=== PATIENT | female | born 1995 | race African-American/Black ===

== ENCOUNTER 2025-07-02 12:05 | Emergency (ER) | payer MEDICAID ==
[~2025-07-02] VITALS: Ht 165.1 cm; Wt 127.6 kg
[~2025-07-02 12:05] MED LIST: ALBU6.7H14 INH; DIPH25CA83 PO; OMEP40CA21 PO
[2025-07-02 12:17] VITALS: TEMP 97.5
[2025-07-02 13:16] LABS: MEAN PLATELET VOLUME 8.9 FL (7.4-10.4); RED CELL DISTRIBUTION WIDTH 18.2 % (11.5-14.5)
[2025-07-02 13:25] LABS: CREATININE 0.88 MG/DL (0.40-0.90); TOTAL CARBON DIOXIDE 27.5 MMOL/L (24-32); eCRCL 84 ML/MIN; eGFR > 90 ML/MIN
[2025-07-02 14:54] LABS: URINE HCG NEGATIVE (NEG)
[2025-07-02 14:57] LABS: LEUKOCYTE ESTERASE ,URINE SMALL (Neg); NITRITES, URINE NEGATIVE (Neg); OCCULT BLOOD,URINE MODERATE (Neg)
[2025-07-02 14:58] LABS: UA COLLECTION TYPE CLN CATCH MIDSTREAM
[2025-07-02 15:06] LABS: MUCUS STRANDS MANY /LPF (Neg); SQUAMOUS EPITHELIAL CELL,UR MODERATE /LPF (FEW)
--- NOTE | 2025-07-02 16:25 | Physician Documentation ---
History of Present Illness Chief Complaint: Abdominal Pain w/vomiting Stated Complaint: MULTIPLE MED COMPLAINTS Time Seen by MD: 14:36 Primary Medical Doctor: NONE Source: patient Mode of Arrival: POV Exam Limitations: no limitations HPI Patient with no significant past medical history presents with a one day history of abdominal pain, nausea, vomiting, diarrhea. Denies fever. Does have chills. Complains of feeling weak and shaky. Complains of a sore throat and cough for one day. Denies sick contacts. Was asked, but otherwise denies review of systems. Medication Reconciliation Allergies: Coded Allergies: No Known Allergies (Unverified , 07/02/25) Scheduled Albuterol Sulfate (Proventil Hfa), 2 PUFFS INH Q6H Diphenhydramine Hcl (Benadryl), 1 CAP PO HS Omeprazole (Prilosec), 1 CAP PO DAILY Sulfamethoxazole/Trimethoprim (Bactrim Ds Tablet), 1 TAB PO Q12H Scheduled PRN ONDANSETRON ODT 4mg tablet (Ondansetron Odt), 1 TAB PO Q6H PRN PRN for nausea/vomiting Past Medical History Past Medical History: No Pertinent History, *PSYCH* Past Surgical History: cholecystectomy, tonsillectomy Alcohol Use: None Drug Use: marijuana Lives In: Home Review of Systems ROS Review of systems negative except specifically documented in HPI. Physical Exam Vital Signs: RN Vital Signs have been reviewed: Yes, Temperature: 97.5, Source: Temporal, Heart Rate: 82, Respiratory Rate: 18, BP: 160/105, Pulse Oximetry: 98, Weight: 127.600 Oxygen Flow Rate: 0 Pulse Oximetry Reflects: adequate oxygenation Physical Exam General: Awake, alert, oriented. No apparent distress Oropharynx: There is no tonsillar exudate. Tonsils are not visible. Those no cobblestoning of the posterior pharynx. Neck: There is minimal submandibular lymphadenopathy. Respiratory: Lungs are clear to auscultation bilaterally. No respiratory distress. Chest: Normal shape and size. No accessory muscle use. Cardiovascular: Regular rate and rhythm. S1-S2. No murmur, gallop, rub. Gastrointestinal: Abdomen is soft, large. Generalized tenderness on palpation. Bowel sounds are positive. No focal tenderness. No rebound tenderness to the right lower quadrant. No significant tenderness of the right upper quadrant. Extremities: No lower extremity edema, cyanosis or clubbing. Neurologic: Alert and oriented x4. Nonfocal Psychiatric: Normal mood and affect. Skin: Normal color. Warm and dry. Progress Results/Orders Results/Orders Completed Orders - LISSETH ENRIQUEZ NP Normal Saline 1000ml (0.9% Sodium Chlori (07/02/25 15:50) Ondansetron Inj. (Zofran 4mg/2ml Vial) (07/02/25 15:50) Vital Signs 07/02/25 07/02/25 07/02/25 12:17 14:12 14:15 Temp 97.5 Pulse 103 82 Resp 22 18 B/P (MAP) 149/129 160/105 (123) Pulse Ox 99 98 O2 Flow Rate 0 0 Laboratory Tests Test 07/02/25 12:59 07/02/25 14:40 White Blood Count 8.2 Red Blood Count 5.59 Hemoglobin 12.9 Hematocrit 39.8 Mean Corpuscular Volume 71.2 L Mean Corpuscular Hemoglobin 23.0 L Mean Corpuscular Hemoglobin Concent 32.3 L Red Cell Distribution Width 18.2 H Platelet Count 350 Mean Platelet Volume 8.9 Neutrophils (%) (Auto) 69.2 Lymphocytes (%) (Auto) 14.5 L Monocytes (%) (Auto) 11.2 Eosinophils (%) (Auto) 4.2 Basophils (%) (Auto) 0.9 Neutrophils # (Auto) 5.7 Lymphocytes # (Auto) 1.2 Monocytes # (Auto) 0.9 Eosinophils # (Auto) 0.3 Basophils # (Auto) 0.1 CBC Comment Sodium Level 139 Potassium Level 3.8 Chloride Level 104 Carbon Dioxide Level 27.5 Anion Gap 8 Blood Urea Nitrogen 12 Creatinine 0.88 Estimated GFR/1.73 m2 > 90 BUN/Creatinine Ratio 13.6 Glucose Level 101 Calcium Level 8.8 Total Bilirubin 0.9 Aspartate Amino Transf (AST/SGOT) 25 Alanine Aminotransferase (ALT/SGPT) 44 Alkaline Phosphatase 151 H Total Protein 8.0 Albumin 4.3 Globulin 3.7 Albumin/Globulin Ratio 1.2 Lipase 18 Chemistry Comments Urine Specimen Description Cln catch midstream Urine Color Yellow Urine Clarity Clear Urine pH 6.5 Urine Specific [place] 1.020 Urine Protein 30 H Urine Glucose (UA) Negative Urine Ketones Trace H Urine Occult Blood Moderate H Urine Nitrite Negative Urine Bilirubin Small Urine Urobilinogen 1.0 Urine Leukocyte Esterase Small H Urine RBC 10-20 Urine WBC 5-10 H Urine Squamous Epithelial Cells Moderate Urine Bacteria Few Urine Mucus Many Urine Culture Indicated Indicated Volume Urine Centrifuged 4 ml Urine HCG, Qualitative Negative Urine Comment Low volume Microbiology Date/Time Source Procedure Growth Status 07/02/25 15:06 Urine Clean Catch Midstream Urine Culture - Preliminary Culture received. Resulted Medical Decision Making Additional information obtaine: other Findings Patient presented with multiple medical complaints including nausea, vomiting, diarrhea. Fever, chills and sore throat. On exam there is no focal tenderness. There is no erythema of the throat. I have low clinical suspicion force strep throat at this time. Her laboratory evaluation was unremarkable with the e xception of a urinary tract infection. Her nausea has improved and she passed a p.o. challenge. She is hemodynamically stable. She isn't . Her physical exam is benign. She has blood in her urine which is consistent with her just getting off her menstrual cycle. She has no CVA tenderness. I do not suspect pyelonephritis or nephrolithiasis at this time. She will be treated for her urinary tract infection. She was given prescription for Zofran. Given her exam findings I have low clinical suspicion for appendicitis. Status post cholecystectomy. Low clinical suspicion for bowel obstruction. No peritoneal signs. Do not suspect bowel perf or anyother acute intrabominal emergency at this time. Warning signs and symptoms were reviewed for her to return for. All questions answered and she verbalized understanding. Differential Dx:Considerations: Appendicitis, Bowel obstruction, Cholangitis, Cholelithasis, Constipation, Diverticular disease, Esophageal rupture, Gastritis/PUD, Gastroenteritis, GI hemorrhage, Ischemic bowel, Pancreatitis, PID, Porphyria, Urinary obstruction, Urinary tract infection, Urolithiasis Departure Time of Disposition: 17:47 Disposition: 01 HOME / SELF CARE / HOMELESS Impression: Primary Impression: Acute urinary tract infection Additional Impression: Nausea vomiting and diarrhea Discharge Instructions: Urinary Tract Infection, Adult Additional Instructions: Your urine was positive for a infection. Please take antibiotics to completion. Recommend staying well hydrated. Can take [id number] Imodium as needed for diarrhea. Take according to package directions. Return for new or worsening symptoms. For your nausea I am giving you a prescription for Zofran which she can take as needed. Please follow up with her primary care provider within the next week. Return if unable to keep food down or water for greater than 8 hours or any other new or worsening symptoms. Or more of your blood pressures was greater than 130/80. I recommend that you follow up with primary care provider with regards to this. Referrals: NO PRIMARY CARE PROVIDER (PCP) Prescriptions Sulfamethoxazole/Trimethoprim (Bactrim Ds Tablet) 800 Mg-160 Mg Tablet 1 TAB PO Q12H for 7 Days, #14 TAB Prov: LISSETH ENRIQUEZ NP 07/02/25 ONDANSETRON ODT 4mg tablet (ONDANSETRON ODT) 4 Mg Tab.rapdis 1 TAB PO Q6H PRN PRN for nausea/vomiting for 4 Days, #16 TAB 0 Refills Prov: LISSETH ENRIQUEZ NP 07/02/25 Education Educated: Patient Educated regarding: diagnosis, treatment, need for follow up Signature Scribe Signature: No scribe Attestation: The note accurately reflects work and decisions made by me.Lisseth Enriquez - JASEN 07/02/25 20:19 This note was created with the assistance of voice recognition software whereby errors in grammar, syntax, and/or spelling may have occurred despite active proofreading efforts by the author. Please do not hesitate to contact the provider for clarification or for questions regarding the content of this document. LISSETH ENRIQUEZ NP Jul 02, 2025 16:25
[2025-07-02] MEDS: normal saline 1000ML IV soln IVB ONE (16:28)
[2025-07-02] MEDS: ondansetron/PF 4mg/2ml inj IV ONE (16:30)
[2025-07-02] MEDS ORDERED: SULF1TAB49 PO (17:48)
[2025-07-02] MEDS ORDERED: ONDA-243 PO (17:48)
[2025-07-02] MEDS: sulfamethoxazole/trimethoprim DS (800/160mg) tablet PO ONE (17:57)
[2025-07-02 18:04] VITALS: BP 117/114; PULSE 81; RESP 15; O2SAT 94
== END 2025-07-02 18:06 | disposition home or self-care (01) ==
LOC: ER 12:06
DX: F12.90 Cannabis use, unspecified, uncomplicated (principal); N39.0 Urinary tract infection, site not specified; R11.2 Nausea with vomiting, unspecified; R19.7 Diarrhea, unspecified; Z90.49 Acquired absence of other specified parts of digestive tract; Z90.89 Acquired absence of other organs
CPT/HCPCS: 36415; 80053; 81001; 81025; 83690; 85025; 87088; 96374; 99283; J2405; J7030